=== PATIENT | male | born 1965 | race Caucasian/White ===

== ENCOUNTER 2020-03-10 13:44 | Day surgery (SDC) | payer MEDICAID ==
[2020-03-10] VITALS (7 sets, daily range): BP systolic 93–115; BP diastolic 60–68
[~2020-03-10] VITALS: Ht 170.2 cm; Wt 63.1 kg
[2020-03-10] MEDS ORDERED: normal saline 1000ml 1,000 ML IV SCH (14:05)
[2020-03-10] MEDS ORDERED: ceFAZolin 2gm in dextrose, iso 50 ML IV ONE ×2 (14:10→16:51)
[2020-03-10 14:28] LABS: BASOPHILS # (AUTO) 0.1 X10'3 (0-0.2); BASOPHILS % (AUTO) 1.3 % (0-1); EOSINOPHILS # (AUTO) 0.2 X10'3 (0-0.9); EOSINOPHILS % (AUTO) 3.7 % (0-6); HEMATOCRIT 41.3 % (42.0-52.0); HEMOGLOBIN 14.2 g/dl (14.0-17.9); LYMPHOCYTES # (AUTO) 1.5 X10'3 (1.1-4.8); LYMPHOCYTES % (AUTO) 27.7 % (21-51); MEAN CORPUSCULAR HGB CONC 34.3 g/dL (33.0-36.5); MEAN CORPUSCULAR VOLUME 96.2 FL (78-98); MONOCYTES # (AUTO) 0.8 X10'3 (0-0.9); MONOCYTES % (AUTO) 14.3 % (2-12); NEUTROPHILS # (AUTO) 2.9 X10'3 (1.8-7.7); PLATELET COUNT 262 X10'3 (140-440); RED BLOOD COUNT 4.29 X10'6 (4.70-6.10); RED CELL DISTRIBUTION WIDTH 13.4 % (11.5-14.5); WHITE BLOOD COUNT 5.5 X10'3 (4.5-11.0)
[2020-03-10 14:38] LABS: ALBUMIN 3.7 G/DL (3.4-5.0); ANION GAP 11 (8-16); BLOOD UREA NITROGEN 23 MG/DL (7-18); BUN/CREATININE RATIO 18.1 (5.4-32.0); CHLORIDE 102 MMOL/L (99-107); CREATININE 1.27 MG/DL (0.60-1.10); GLUCOSE 108 MG/DL (70-104); POTASSIUM 3.6 MMOL/L (3.5-5.1); SODIUM 138 MMOL/L (135-145); TOTAL CARBON DIOXIDE 25.2 MMOL/L (24-32); eGFR 60 ML/MIN
[2020-03-10] MEDS ORDERED: DIGO250T PO (14:40)
[2020-03-10] MEDS ORDERED: POTA10TA19 PO (14:40)
[2020-03-10] MEDS ORDERED: APIX5TAB3 PO (14:40)
[2020-03-10] MEDS ORDERED: CARV3.12 PO (14:40)
[2020-03-10] MEDS ORDERED: AMIO200T62 PO (14:40)
[2020-03-10] MEDS ORDERED: LISI-604 PO (14:40)
[2020-03-10] MEDS ORDERED: NITR0.4T51 SL (14:40)
[2020-03-10] MEDS ORDERED: ATOR80TA PO (14:40)
[2020-03-10] MEDS ORDERED: FURO40TA4 PO (14:40)
[2020-03-10] MEDS ORDERED: fentaNYL/PF 50MCG/1 ML 2ML syringe ONE ×2 (16:27→17:31)
[2020-03-10] MEDS ORDERED: midazolam 2 mg/2 ml injection ONE ×4 (16:27→17:32)
[2020-03-10] MEDS ORDERED: ceFAZolin 1000mg inj ONE (16:27)
[2020-03-10] MEDS ORDERED: LIDOcaine 1% W/epiNEPHrine 1:100,000 20ml vial ONE (16:27)
== END 2020-03-10 19:50 | disposition home or self-care (01) ==
LOC: SSTAY O 13:44
PROVIDERS: ATTEND Internal Medicine Interventional Cardiology
DX: I42.8 Other cardiomyopathies (principal); I11.0 Hypertensive heart disease with heart failure; I50.9 Heart failure, unspecified; E78.5 Hyperlipidemia, unspecified; Z79.899 Other long term (current) drug therapy; Z79.01 Long term (current) use of anticoagulants
CPT/HCPCS: 33249; 36415; 80048; 85025; 85610; 93005; 99152; 99153; C1721; C1895; J0690; J2250; J3010; A4565; A4620; A6258; C1785; C1898